=== PATIENT | male | born 1990 | race Caucasian/White ===

== ENCOUNTER 2019-07-17 03:31 | Emergency (ER) | payer OTHER ==
[2019-07-17 03:39] VITALS: TEMP 98.8
[2019-07-17] MEDS ORDERED: ETOMIDATE 2 MG/ML 10 ML VIAL IVP STA (03:50)
--- NOTE | 2019-07-17 03:54 | ED ---
Upper Extremity HPI - General Chief Complaint: Extremity Injury, Upper Stated Complaint: R Arm Injury Time Seen by Provider: 07/17/19 03:41 Source: patient Mode of arrival: ambulatory Limitations: physical limitation - History of Present Illness Initial Comments: This patient is a 29-year-old man who presents here from the other hospital in [facility], where he was told he had dislocated his hand. Patient splinted and has x- rays. Complaint: Injury to:: right, hand Onset/Timin -: hour(s) Other Extremity Injury: Hand: Right Other Injuries: none Handedness: right Place: home Improves With: none Worsens With: none Context: direct blow Associated Symptoms: heard/felt popping sensat Treatments Prior to Arrival: splint - Related Data Previous Rx's Medication Instructions Recorded Hydrocodone/Acetaminophen [[place] 1 each PO Q6HR PRN #20 tab 07/17/19 5-325] Ibuprofen [Motrin] 600 mg PO Q8HR PRN #20 tab 07/17/19 Allergies Allergy/AdvReac Type Severity Reaction Status Date / Time No Known Allergies Allergy Verified 07/17/19 03:38 Review of Systems ROS Statement: Those systems with pertinent positive or pertinent negative responses have been documented in the HPI. ROS Other: All systems not noted in ROS Statement are negative. Constitutional: Denies: fever, weakness Musculoskeletal: Reports: as per HPI, joint swelling, arthralgia Skin: Denies: rash Neurological: Denies: headache, weakness, numbness Past Medical History Past Medical History: No Reported History History of Any Multi-Drug Resistant Organisms: None Reported Past Surgical History: Orthopedic Surgery Additional Past Surgical History / Comment(s): left elbow Past Psychological History: No Psychological Hx Reported, Anxiety Smoking Status: Current every day smoker Past Alcohol Use History: Occasional, Rare Past Drug Use History: Marijuana General Exam Limitations: physical limitation General appearance: alert, in no apparent distress Head exam: Present: atraumatic, normocephalic Extremities exam: Present: tenderness, normal capillary refill, other (Patient has apparent dislocation of the base of the third metacarpal.) Neurological exam: Present: alert. Absent: motor sensory deficit Skin exam: Present: warm, dry, intact, normal color. Absent: rash Course Vital Signs 07/17/19 07/17/19 07/17/19 03:33 04:04 04:05 Temperature 98.8 F Pulse Rate 91 73 84 Respiratory 18 Rate Blood Pressure 129/80 O2 Sat by Pulse 96 99 Oximetry 07/17/19 07/17/19 07/17/19 04:06 04:10 04:15 Temperature Pulse Rate 80 86 80 Respiratory 18 16 16 Rate Blood Pressure 141/94 140/90 141/96 O2 Sat by Pulse 98 98 99 Oximetry 07/17/19 07/17/19 07/17/19 04:20 04:25 04:30 Temperature Pulse Rate 64 90 98 Respiratory 18 18 16 Rate Blood Pressure 141/94 144/100 170/126 O2 Sat by Pulse 99 97 96 Oximetry 07/17/19 07/17/19 07/17/19 04:35 04:40 04:45 Temperature Pulse Rate 97 64 65 Respiratory 16 16 16 Rate Blood Pressure 164/112 147/88 143/89 O2 Sat by Pulse 98 98 95 Oximetry Procedures - Procedural Sedation Procedural Sedation Start Time: 04:06 Procedural Sedation Stop Time: 04:21 Indications: fracture/dislocation reduction ASA Class: I Mallampati Airway Score: 2 Preparation: vehicle monitor technician applied, pulse oximeter, capnometry used, supplemental O2 applied, suction/airway equipment at bedside, IV secured IV Etomidate Dose (mgs): 12 Complications: none Patient Tolerated Procedure: well, no complications Medical Decision Making - Medical Decision Making 29-year-old man presents with dislocation of fourth and fifth metacarpals. I did ride procedural sedation and reduce the injury without complication. Patient tolerated procedure well. I was contacting the orthopedic surgeon when the patient decided to leave. He refused to stay to have appropriate further care and follow-up arranged. Disposition Clinical Impression: Dislocation of metacarpal (bone), proximal end of unspecified hand, initial encounter Disposition: HOME SELF-CARE Condition: Fair Instructions (If sedation given, give patient instructions): Procedural Sedation (ED), Closed Reduction (ED) Prescriptions: Ibuprofen [Motrin] 600 mg PO Q8HR PRN #20 tab PRN Reason: Pain Hydrocodone/Acetaminophen [[place] 5-325] 1 each PO Q6HR PRN #20 tab PRN Reason: Pain Is patient prescribed a controlled substance at d/c from ED?: Yes When asked, does pt state using other controlled substances?: No If prescribed controlled substance>3 days was MAPS reviewed?: Prescribed <3 Days If opioid is for acute pain is fill amount 7 days or less?: Yes If Rx opioid, was Start Talking consent form obtained?: Yes Referrals: Samy Lucas DO [Medical Doctor] - 1-2 days Nonstaff,Physician [Primary Care Provider] - 1-2 days Suleman Rene MD [STAFF PHYSICIAN] - 1-2 days
[2019-07-17 04:40] VITALS: RESP 16
[2019-07-17 04:51] VITALS: PULSE 65
[2019-07-17 05:23] VITALS: BP 131/85
--- NOTE | 2019-07-17 05:24 | XR ---
INDICATION: Postreduction COMPARISON: Right hand radiographs 07/17/19 at 0247 hours FINDINGS: Frontal and lateral views of the right hand obtained. There has been successful reduction of previously seen dislocations of the fourth and fifth carpometacarpal joints. A few punctate osseous densities dorsal to the distal carpal row may represent small chip fractures. There is residual dorsal soft tissue swelling. IMPRESSION: Successful reduction of previously seen fourth and fifth CMC joint dislocations. Possible small chip fractures are seen dorsally, with residual dorsal soft tissue swelling.
== END 2019-07-17 05:23 | disposition home or self-care (01) ==
LOC: EC 03:31
DX: S63.054A Dislocation of other carpometacarpal joint of right hand, initial encounter (principal); F17.200 Nicotine dependence, unspecified, uncomplicated; Z53.29 Procedure and treatment not carried out because of patient's decision for other reasons; W22.03XA Walked into furniture, initial encounter; Y92.009 Unspecified place in unspecified non-institutional (private) residence as the place of occurrence of the external cause
CPT/HCPCS: 26670; 99152; 99283

== ENCOUNTER 2024-08-13 09:20 | Emergency (ER) | payer OTHER ==
[2024-08-13 09:30] VITALS: RESP 18
[2024-08-13] MEDS: LIDOCAINE 1% INJ 10MG/ML (20 ML MDV) SQ ONE (09:54)
--- NOTE | 2024-08-13 09:58 | ED ---
Wound/Laceration HPI - General Chief Complaint: Wound/Laceration Stated Complaint: hand lac-[facility] Time Seen by Provider: 08/13/24 09:31 Source: patient, RN notes reviewed Mode of arrival: ambulatory Limitations: no limitations - History of Present Illness Initial Comments: This is a 34-year-old male who presents to the emergency department for a finger laceration. Patient states that he was at work and cut his left middle finger on a piece of metal. Pain and bleeding are controlled. Not taking any blood thinners. Tetanus vaccine is up-to-date. - Related Data Previous Rx's Medication Instructions Recorded Hydrocodone/Acetaminophen [[place] 1 each PO Q6HR PRN #20 tab 07/17/19 5-325] Ibuprofen [Motrin] 600 mg PO Q8HR PRN #20 tab 07/17/19 Allergies Allergy/AdvReac Type Severity Reaction Status Date / Time No Known Allergies Allergy Verified 07/17/19 03:38 Review of Systems ROS Statement: Those systems with pertinent positive or pertinent negative responses have been documented in the HPI. ROS Other: All systems not noted in ROS Statement are negative. Past Medical History Past Medical History: No Reported History History of Any Multi-Drug Resistant Organisms: None Reported Past Surgical History: Orthopedic Surgery Additional Past Surgical History / Comment(s): left elbow, ACDF sx Past Psychological History: No Psychological Hx Reported, Anxiety Smoking Status: Vaper Past Alcohol Use History: Occasional, Rare Past Drug Use History: Marijuana General Exam Limitations: no limitations General appearance: alert, in no apparent distress Head exam: Present: atraumatic, normocephalic, normal inspection Respiratory exam: Present: normal lung sounds bilaterally. Absent: respiratory distress, wheezes, rales, rhonchi, stridor Cardiovascular Exam: Present: regular rate, normal rhythm, normal heart sounds. Absent: systolic murmur, diastolic murmur, rubs, gallop, clicks Extremities exam: Present: other (1 cm horizontal laceration to the dorsal aspect of the left middle finger. Minor active bleeding.) Neurological exam: Present: alert, oriented X3, CN II-XII intact Psychiatric exam: Present: normal affect, normal mood Course Vital Signs 08/13/24 08/13/24 09:26 10:29 Temperature 98.2 F 98.1 F Pulse Rate 68 56 L Respiratory 18 18 Rate Blood Pressure 147/87 120/74 O2 Sat by Pulse 100 100 Oximetry Procedures - Laceration Laceration #1 Consent Obtained: verbal consent Indication: laceration Site: hand Size (cm): 1 Description: linear Depth: simple, single layer Anesthetic Used: lidocaine 1% Anesthesia Technique: local infiltration Amount (mls): 2 Pre-repair: wound explored, irrigated extensively Type of Sutures: nylon Size of Sutures: 5-0 Number of Sutures: 3 Technique: simple, interrupted Medical Decision Making - Medical Decision Making This is a 34-year-old male who presents to the emergency department for a finger laceration. Was pt. sent in by a medical professional or institution? @ -No Did you speak to anyone other than the patient for history? @ -No Did you review nursing and triage notes? @ -Yes, and I agree, it is accurate with regards to the patient's symptoms. Were old charts reviewed? @ -No Differential Diagnosis? @ -Laceration, abrasion, cellulitis, burn, this is not meant to be an all- inclusive list. EKG interpreted by me (3pts min.)? @ -Not obtained X-rays interpreted by me (1pt min.)? @ -Not obtained CT interpreted by me (1pt min.)? @ -Not obtained U/S interpreted by me (1pt. min.)? @ -Not obtained What testing was considered but not performed? (CT, X-rays, U/S, labs)? Why? @ -None What meds were considered but not given? Why? @ -None Did you discuss the management of the patient with other professionals? @ -No Did you reconcile home meds? @ -No Was smoking cessation discussed for >3mins.? @ -No Was critical care preformed (if so, how long)? @ -No Were there social determinants of health that impacted care today? How? (Homelessness, low income, unemployed, alcoholism, drug addiction, transportation, low edu. Level, literacy, decrease access to med. care, [facility], rehab)? @ -No Was there de-escalation of care discussed even if they declined? (Discuss DNR or withdrawal of care, Hospice)? @ -No What co-morbidities impacted this encounter? (DM, HTN, Smoking, COPD, CAD, Cancer, CVA, Hep., AIDS, mental health diagnosis, sleep apnea, morbid obesity)? @ -None Was patient admitted / discharged? @ -Discharged. Laceration was cleansed and repaired with sutures. Tetanus vaccine is already up-to-date. Advised ibuprofen and Tylenol as needed for pain relief and returning in 7 to 10 days for suture removal. Patient discharged home in stable condition. Case discussed with ED attending Dr. Dickens. Return precautions reviewed in depth, the patient is instructed to return to the emergency department with any new, worsening, or concerning symptoms. Patient verbalized understanding. Undiagnosed new problem with uncertain prognosis? @ -None Drug Therapy requiring intensive monitoring for toxicity (Heparin, Nitro, Insulin, Cardizem)? @ -None Were any procedures done? @ -Laceration repair with sutures Diagnosis/symptom? @ -Laceration Acute, or Chronic, or Acute on Chronic? @ -Acute Uncomplicated (without systemic symptoms) or Complicated (systemic symptoms)? @ -Uncomplicated Side effects of treatment? @ -None Exacerbation, Progression, or Severe Exacerbation] @ -Not applicable Poses a threat to life or bodily function? @ -No Disposition Clinical Impression: Laceration Disposition: HOME SELF-CARE Instructions (If sedation given, give patient instructions): Care For Your Stitches (ED) Additional Instructions: Return to the emergency department with any new, worsening, or concerning symptoms and in 7-10 days for removal of the stitches. Is patient prescribed a controlled substance at d/c from ED?: No Referrals: None,Stated [Primary Care Provider] - 1-2 days Time of Disposition: 10:14
[2024-08-13 10:32] VITALS: BP 120/74; PULSE 56; TEMP 98.1
== END 2024-08-13 10:31 | disposition home or self-care (01) ==
LOC: EC 09:20
DX: S61.213A Laceration without foreign body of left middle finger without damage to nail, initial encounter (principal); F17.290 Nicotine dependence, other tobacco product, uncomplicated; W26.8XXA Contact with other sharp object(s), not elsewhere classified, initial encounter; Y99.0 Civilian activity done for income or pay
CPT/HCPCS: 12001; 99282; J2003